=== PATIENT | male | born 1995 | race Caucasian/White ===

== ENCOUNTER 2017-02-09 21:56 | Emergency (ER) | payer OTHER ==
[~2017-02-09] VITALS: Ht 182.9 cm; Wt 91.5 kg
[2017-02-09 22:01] VITALS: Ht 182.9 cm; Wt 91.5 kg
[2017-02-09] MEDS ORDERED: HYDROCODONE/APAP (5/325) TAB PO ONE (23:30)
--- NOTE | 2017-02-10 00:18 | RADRPT ---
PROCEDURE: ULTRASOUND TESTICULAR CLINICAL INDICATION: 21-year-old male with left-sided scrotal pain. TECHNIQUE: Multiple sonographic images of the scrotal region were obtained utilizing a linear arra y transducer with grayscale and color-flow and a Doppler imaging. The images were reviewed on a high -resolution PACS workstation. COMPARISON: None. FINDINGS: The right testicle is well visualized and has a normal echotexture. No focal areas of abnormal echog enicity are visualized. The right testicle measures 4.4 x 2.0 x 3.1 cm. There is normal color-flow. The right epididymis is visualized and measures approximately measures 13 x 5 x 10 mm. There is norm al color-flow. The left testicle is well visualized and has a normal echotexture. No focal areas abnormal echogenic ity are visualized. The left testicle measures 4.1 x 2.7 x 2.9 cm. There is normal color-flow. The l eft epididymis is enlarged and heterogeneous measuring approximately measures 25 x 16 x 14 mm. There is marked increased color-flow. There is a mild left-sided hydrocele. IMPRESSION: 1. No sonographic evidence for testicular torsion. 2. Enlarged heterogeneous hypervascular left epididymis most consistent with epididymitis. 3. Mild left hydrocele. .Michael Junior MD, Date Time Electronically viewed and signed by .Michael Junior MD, MD on 02/10/2017 00:18 .M/
[2017-02-10 00:53] LABS: ADD UMIC YES; UR ASCORBIC ACID NEGATIVE (NEGATIVE); UR BACTERIA FEW /HPF (NONE SEEN); UR BILIRUBIN (Dip) NEGATIVE (NEGATIVE); UR BLOOD (Dip) NEGATIVE (NEGATIVE); UR CLARITY SLIGHTLY CLOUDY (CLEAR); UR COLOR YELLOW (YELLOW); UR GLUCOSE (Dip) NEGATIVE (NEGATIVE); UR KETONES (Dip) TRACE mg/dL (NEGATIVE); UR LEUKOCYTE ESTERASE (Dip) 2+ Leu/ul (NEGATIVE); UR NITRITE (Dip) NEGATIVE (NEGATIVE); UR RBC 9 /HPF (0-5); UR SPECIFIC GRAVITY (Dip) 1.025 (1.003-1.030); UR TOTAL PROTEIN (Dip) 1+ mg/dl (NEGATIVE); UR UROBILINOGEN (Dip) NEGATIVE (NEGATIVE)
[2017-02-10] MEDS ORDERED: LIDOCAINE 1% (MDV) 10 ML INJ INJ STA (00:57)
[2017-02-10] MEDS ORDERED: CEFTRIAXONE 250 MG INJ IM ONE (01:00)
--- NOTE | 2017-02-10 01:01 | ERD ---
ER Documentation Chief Complaint Date/Time DATE: 02/10/17 TIME: 00:59 Chief Complaint testicular pain x 2 days HPI Patient is a 21-year-old male who presents with left-sided testicle pain that he has had for 2 days. He states his testicles and he thinks he may have a hernia because he does a lot of heavy lifting. He does admit to recent unprotected sex. He denies any dysuria or hematuria. Denies urinary frequency. Denies any fever, nausea, vomiting, diarrhea. Denies any abnormal penile discharge. Pain is throbbing 8 out of 10 nonradiating in the left testicle. ROS All systems reviewed and are negative except as per history of present illness. Allergies Allergies: Coded Allergies: No Known Allergy (Unverified , 02/09/17) PMhx/Soc History of Surgery: Yes (abd. surgery) Hx Alcohol Use: No Hx Substance Use: Yes (daily meth use) Hx Tobacco Use: Yes Smoking Status: Current every day smoker FmHx Family History: No diabetes Physical Exam Vitals Vital Signs Date Time Temp Pulse Resp B/P Pulse Ox O2 Delivery O2 Flow Rate FiO2 02/09/17 22:01 98.3 102 20 149/87 97 Physical Exam General: well developed, well nourished, alert, nontoxic, no distress Head: normocephalic, atraumatic Neck: Supple, nontender, no lymphadenopathy, no midline tenderness Respiratory: Clear to auscaultation bilaterally, speaks in full sentences, no use of accesory muscles or labored breathing, no rales, ronchi, or wheezing Cardiovascular: RRR, No murmurs GI: soft, non tender, non distended, negative murphys sign, negative mcburneys point tenderness, no cva tenderness bilaterally, no rebound or guarding : Left testicle is 2+ edema and tender, no inguinal lymphadenopathy Results 24 hrs Laboratory Tests Test 02/09/17 23:58 Urine Color YELLOW Urine Clarity SLIGHTLY CLOUDY Urine pH 6.0 Urine Specific [place] 1.025 Urine Ketones TRACEmg/dL Urine Nitrite NEGATIVEmg/dL Urine Bilirubin NEGATIVEmg/dL Urine Urobilinogen NEGATIVEmg/dL Urine Leukocyte Esterase 2+Vandana/ul Urine Microscopic RBC 9/HPF Urine Microscopic WBC 85/HPF Urine Bacteria FEW/HPF Urine Hemoglobin NEGATIVEmg/dL Urine Glucose NEGATIVEmg/dL Urine Total Protein 1+mg/dl Current Medications Medications (Trade) Dose Ordered Sig/Ariella Route PRN Reason Start Time Stop Time Status Last Admin Dose Admin Acetaminophen/ Hydrocodone Bitart ([place] (5/325)) 1 tab ONCE ONCE PO 02/09/17 23:30 02/09/17 23:31 DC 02/09/17 23:56 Ceftriaxone Sodium (Rocephin) 250 mg ONCE ONCE IM 02/10/17 01:00 02/10/17 01:01 Lidocaine HCl (Lidocaine 1% (Mdv) 10 ml) 10 ml ONCE STAT INJ 02/10/17 00:57 02/10/17 00:58 DC Procedures/MDM Patient has left testicle pain and swelling. Urine does show infection. Ultrasound shows evidence of epididymitis. No evidence of torsion. He was given ceftriaxone here in the emergency room and discharged with doxycycline. He was counseled to avoid any sexual contact intact until his symptoms resolved. Recommended this patient follow up with her primary care doctor within 48 hours or return to the emergency room for any worsening of symptoms. However this time I do believe there is suitable for outpatient management. I answered all their questions and they agreed with the plan and were discharged home. Departure Diagnosis: Primary Impression: Epididymitis Condition: Stable PILLO MOCTEZUMA PA-C Feb 10, 2017 01:01
[2017-02-10] MEDS ORDERED: IBUP800T25 PO (01:02)
[2017-02-10] MEDS ORDERED: DOXY100T20 PO (01:02)
[2017-02-10 01:43] VITALS: BP 145/82; PULSE 77; RESP 20; TEMP 98.3
== END 2017-02-10 01:47 | disposition home or self-care (01) ==
LOC: FTE 21:56
DX: N45.1 Epididymitis (principal); F17.210 Nicotine dependence, cigarettes, uncomplicated
CPT/HCPCS: 76870; 81001; 96372; J0696; Z7502; Z7610

== ENCOUNTER 2018-02-05 07:04 | Emergency (ER) | END 2018-02-05 07:50 | disposition left against medical advice (07) ==

== ENCOUNTER 2018-06-20 19:07 | Emergency (ER) | END 2018-06-20 20:29 | disposition home or self-care (01) ==

== ENCOUNTER 2018-12-14 19:02 | Emergency (ER) | payer SELFPAY ==
[2018-06-20 19:11] VITALS: BMI 29.8
[~2018-12-14 19:02] MED LIST: CEPH-443 PO; DOXY100T20 PO; IBUP800T48 PO
== END 2018-12-14 19:51 | disposition left against medical advice (07) ==
LOC: E/R 19:02
DX: Z53.21 Procedure and treatment not carried out due to patient leaving prior to being seen by health care provider (principal)

== ENCOUNTER 2018-12-17 16:29 | Emergency (ER) | payer OTHER ==
[~2018-12-17] VITALS: Wt 85.2 kg
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
[2018-12-17] MEDS ORDERED: TR1B60 TOP (18:50)
[2018-12-17] MEDS ORDERED: BACI28.34 TOP (18:50)
[2018-12-17 19:12] VITALS: BP 132/74; PULSE 86; RESP 18
== END 2018-12-17 19:13 | disposition home or self-care (01) ==
LOC: FTE 16:29
DX: L55.0 Sunburn of first degree (principal); F17.210 Nicotine dependence, cigarettes, uncomplicated
CPT/HCPCS: 99282

== ENCOUNTER 2019-02-02 00:43 | Emergency (ER) | payer SELFPAY ==
[~2019-02-02] VITALS: Ht 185.4 cm; Wt 88.4 kg
[~2019-02-02 00:43] MED LIST changes: +BACI28.34 TOP; +TR1B60 TOP
[2019-02-02 00:52] VITALS: BP 136/73; PULSE 92; RESP 19; Ht 185.4 cm; Wt 88.4 kg
== END 2019-02-02 05:01 | disposition left against medical advice (07) ==
LOC: FTE 00:43
DX: Z53.21 Procedure and treatment not carried out due to patient leaving prior to being seen by health care provider (principal)

== ENCOUNTER 2019-02-14 22:00 | Emergency (ER) | payer OTHER ==
[~2019-02-14] VITALS: Ht 185.4 cm; Wt 87.2 kg
[2019-02-14 22:06] VITALS: BP 132/60; PULSE 96; RESP 18; Ht 185.4 cm; Wt 87.2 kg
--- NOTE | 2019-02-14 22:24 | ERD ---
ER Documentation Chief Complaint Chief Complaint right knee pain/abscess x 2 days HPI This is a 23-year-old male who presents emergency department with complaints of right knee pain, abscess for about 2 days. Patient admitted that he uses IV drugs, heroin. Denies headache, head injury, loss of consciousness, dizziness, neck pain, neck stiffness, throat pain, difficulty swallowing, difficulty breathing lying flat, shoulder pain, chest pain, back pain, abdominal pain, nausea, vomiting, constipation, diarrhea, urinary symptoms, loss of bowel and bladder control, trauma, injury, falls, difficulty walking due to pain, numbness or tingling sensation, calf pain, recent travel, recent major surgery in the last 3 weeks, calf pain, recent long travel, recent exposure to any illness, recent antibiotic use in the last 3 months, fever, chills, seizures. Past medical history: Denies. Surgical history: Denies. Social: Denies smoking, use of alcoholic beverages. ROS All systems reviewed and are negative except as per history of present illness. Medications Home Meds Active Scripts Ibuprofen* (Motrin*) 800 Mg Tab, 800 MG PO Q6H PRN for PAIN AND OR ELEVATED TEMP, #30 TAB Prov:PANCHO CASIANO F 02/14/19 Sulfamethoxazole/Trimethoprim* (Bactrim Ds* Tablet) 1 Each Tablet, 1 TAB PO BID for 7 Days, #14 TAB Prov:ALFREDOROSMERYSYLWIAANTOINE F 02/14/19 Cephalexin* (Keflex*) 500 Mg Capsule, 500 MG PO TID for 7 Days, CAP Prov:ALFREDOILASYLWIA ISSAAR F 02/14/19 Bacitracin* (Bacitracin Zinc Oint*) 28.35 Gm Oint, 1 APPLIC TOP BID for 7 Days, #1 TUB APPLI TO Prov:SHILO PRYOR MD 12/17/18 Triamcinolone Acetonide (Triamcinolone Acetonide) 0.1% - 60 Ml Lotion, 1 APPLIC TOP BID for 5 Days, #1 BOTTLE Prov:SHILO PRYOR MD 12/17/18 Cephalexin* (Keflex*) 500 Mg Capsule, 500 MG PO QID for 7 Days, CAP Prov:PILLO MOCTEZUMA PA-C 06/20/18 Ibuprofen* (Motrin*) 800 Mg Tab, 800 MG PO Q6, #30 TAB Prov:PILLO MOCTEZUMA PA-C 02/10/17 Doxycycline Hyclate* (Doxycycline Hyclate*) 100 Mg Tablet., 100 MG PO BID for 10 Days, TAB Prov:PILLO MOCTEZUMA PA-C 02/10/17 Allergies Allergies: Coded Allergies: No Known Allergy (Unverified , 02/14/19) PMhx/Soc Anesthesia Reaction: No Hx Psychiatric Problems: Yes (anxiety and ptsd; took himself off meds ) Hx Alcohol Use: No Hx Substance Use: Yes (marijuana, IV METH) Hx Tobacco Use: Yes Smoking Status: Current every day smoker Physical Exam Vitals Vital Signs Date Temp Pulse Resp B/P (MAP) Pulse Ox O2 O2 Flow FiO2 Time Delivery Rate 02/14/19 98.7 96 18 132/60 97 22:06 (84) Physical Exam Const: No acute distress Head: Atraumatic Eyes: Normal Conjunctiva ENT: Normal External Ears, Nose and Mouth. Neck: Full range of motion. No meningismus. Resp: Clear to auscultation bilaterally Cardio: Regular rate and rhythm, no murmurs Abd: Soft, non tender, non distended. Normal bowel sounds Skin: No petechiae or rashes Back: No midline or flank tenderness. Right knee: No obvious deformity. No obvious swelling. Anterior and superior area of the right knee has a redness and swelling that is measuring approximately 2 x 2 cm diameter. No induration. Good and full range of motion of the right knee. Very low suspicion of septic joint. Symmetrical knees. No calf tenderness bilaterally. Bilateral pedal pulses are within normal limits. Capillary refills to bilateral lower extremities are less than 2 seconds with no neurovascular deficit. Ambulatory with steady gait. Ext: No cyanosis, or edema Neur: Awake and alert. No neurological deficits. Psych: Normal Mood and Affect Results 24 hrs Current Medications Medications Dose Sig/Ariella Start Time Status Last (Trade) Ordered Route PRN Stop Time Admin Dose Reason Admin Ceftriaxone 1 gm ONCE ONCE 02/14/19 DC 02/14/19 Sodium IM 22:30 22:33 (Rocephin) 02/14/19 22:31 Lidocaine 20 ml ONCE ONCE 02/14/19 DC 02/14/19 (Xylocaine SC 23:00 22:38 1% (Mdv) 20 02/14/19 23:01 ml) Procedures/MDM Diagnostic tests: Clinical exam. Treatment: Ceftriaxone IM. Re-evaluation: No reactions to medication. Right knee: Good and full range of motion. No obvious deformity. Skin is not warm to touch. No signs of septic joint. No calf tenderness bilaterally. Capillary refills to bilateral lower extremities are less than 2 seconds. Stated that he feels much better at this time and that he is ready to go home. Stated that he is comfortable to go home. Differential diagnosis I have low suspicion for sepsis, necrotizing fasciitis, deep space infection, osteomyelitis, septic joint, DVT. Final diagnosis: Abscess. Cellulitis. Prescription: Bactrim. Keflex. Follow-up with PCP in the next 24-48 hours. Come back here in the emergency department in 24 to 48 hours for recheck of right knee abscess/cellulitis. Come back here in the emergency department for any new symptoms or any worsening symptoms. All questions and concerns were answered. Patient and family members verbalized understanding and agreed with plan of care. Hemodynamically stable on discharge. Departure Diagnosis: Primary Impression: Abscess Additional Impression: Cellulitis Condition: Stable Additional Instructions: Follow-up with PCP in the next 24-48 hours. Come back here in the emergency department in 24 to 48 hours for recheck of right knee abscess/cellulitis. Come back here in the emergency department for any new symptoms or any worsening symptoms. PANCHO CASIANO Feb 14, 2019 22:24
[2019-02-14] MEDS ORDERED: CEFTRIAXONE 1 GM INJ IM ONE (22:30)
[2019-02-14] MEDS ORDERED: CEPH-443 PO (22:37)
[2019-02-14] MEDS ORDERED: SULF1TAB31 PO (22:37)
[2019-02-14] MEDS ORDERED: IBUP800T48 PO (22:38)
[2019-02-14] MEDS ORDERED: LIDOCAINE 1% (MDV) 20 ML INJ SC ONE (23:00)
== END 2019-02-14 23:09 | disposition home or self-care (01) ==
LOC: FTE 22:00
DX: L02.415 Cutaneous abscess of right lower limb (principal); L03.115 Cellulitis of right lower limb; F17.210 Nicotine dependence, cigarettes, uncomplicated
CPT/HCPCS: 96372; J0696; Z7502; Z7610